=== PATIENT | male | born 1955 | race Caucasian/White ===

== ENCOUNTER 2024-03-17 10:27 | Emergency (ER) | payer MEDICARE, BC ==
[2024-03-17] MEDS: Doxycycline 100 MG Cap PO ONE (11:17)
[2024-03-20 22:02] LABS: LYME VLSE1/PEPC10 ABS, ELISA 0.32 IV (<=0.90)
== END 2024-03-17 11:45 | disposition home or self-care (01) ==
LOC: MW.ED 10:27
DX: S70.361A Insect bite (nonvenomous), right thigh, initial encounter (principal); Z75.8 Other problems related to medical facilities and other health care; W57.XXXA Bitten or stung by nonvenomous insect and other nonvenomous arthropods, initial encounter
CPT/HCPCS: 86618; 86788; 99283; A9270